=== PATIENT | male | born 1970 | race Caucasian/White ===

== ENCOUNTER 2020-12-21 17:23 | Emergency (ER) | payer OTHER ==
[2020-12-21] MEDS ORDERED: IBUPROFEN800 MG PO (20:21)
[2020-12-21] MEDS ORDERED: CYCLOBENZAPRINE10 MG PO (20:21)
== END 2020-12-21 20:26 | disposition home or self-care (01) ==
LOC: ER1 17:23
DX: M54.5 Low back pain (principal); G89.29 Other chronic pain; Z88.0 Allergy status to penicillin
CPT/HCPCS: 72100; 99283

== ENCOUNTER 2020-12-22 06:49 | Emergency (ER) | payer OTHER ==
[~2020-12-22 06:49] MED LIST: CYCLOBENZAPRINE10 MG PO; IBUPROFEN800 MG PO
== END 2020-12-22 10:35 | disposition home or self-care (01) ==
LOC: ER1 06:49
DX: A64 Unspecified sexually transmitted disease (principal); F41.9 Anxiety disorder, unspecified; F32.9 Major depressive disorder, single episode, unspecified; I10 Essential (primary) hypertension; G40.909 Epilepsy, unspecified, not intractable, without status epilepticus; Z88.0 Allergy status to penicillin
CPT/HCPCS: 99283